=== PATIENT | female | born 1955 | race Caucasian/White ===

== ENCOUNTER 2016-12-09 08:18 | Emergency (ER) | payer OTHER ==
--- NOTE | 2016-12-09 09:28 | DIAGNOSTIC IMAGING REPORT ---
PROCEDURE: XR CHEST 1 VIEW INDICATION: SHORTNESS OF BREATH TECHNIQUE: Portable AP view 08:29 a.m. COMPARISON: Chest x-ray 05/22/2016. FINDINGS: Resolved right basilar infiltrate. Lungs are clear. Heart and mediastinum are normal. Thorax is normal. IMPRESSION: 1. Negative chest.
--- NOTE | 2016-12-09 11:15 | ED NURSING NOTES ---
Clinical Report - Nurses [facility] [address] [place] [address] 12/09/2016 8:19 Patient: MAREN MARADIAGA TRIAGE Triage time 08:14. Acuity: LEVEL 3. Chief Complaint: DIZZINESS and (CASILLAS). Alert. EDMUNDO COMA SCORE: [place] Coma Scale: 15- eyes open spontaneously (4); best verbal response- oriented x 4 (5); best motor response- obeys commands (6). --08:23 Alyson Jules R.N. 08:14 12/09/16. BP: 124/64. HR: 51. RR: 15. O2 saturation: 96% on room air. Temp: 97.4 F (oral). Pain level now: 06/07. --08:23 Alyson Jules R.N. Weight: 97.7 kg measured. Height/Length: 66 inches Per Patient. BMI: 34.8. --08:21 Alyson Jules R.N. Medications TraZODone HCl Oral 400 mg, daily. --08:16 Alyson Jules R.N. Effexor XR Oral 150 mg, daily. --08:16 Alyson Jules R.N. Ritalin Oral 20 mg, daily. --08:17 Alyson Jules R.N. morphine 60 mg, daily. --08:17 Alyson Jules R.N. OxyCODONE HCl Oral 20 mg, daily. --08:17 Alyson Jules R.N. Atorvastatin Calcium Oral 20 mg, daily. --08:25 Alyson Julse R.N. Medication/allergy information source: the patient. --08:23 Alyson Jules R.N. Allergies Abilify. --08:18 Alyson Jules R.N. History Arrived by private vehicle. Historian: patient. Accompanied by family. Primary physician (Otoniel). This started about 2 days. SOCIAL HX: Former smoker. No alcohol use or drug use. FALL RISK ASSESSMENT: Fall risk assessment completed. No fall risk identified. FUNCTIONAL ASSESSMENT: Functional assessment: no impairments noted. LEARNING NEEDS ASSESSMENT: The learning needs assessment revealed no barriers. --08:23 Alyson Jules R.N. PROBLEMS: Dehydration. Hypokalemia. Weakness. UTI - Urinary Tract Infection. Headache. Dysphagia. Dental Pain. Chronic Headache. Migraine Headache. Fibromyalgia. Nausea. Abdominal Pain. Back Injury. Cardiac Arrest. Back Pain. Fall. Arthritis. Depression. Hypercholesterolemia. --08:23 Alyson Jules R.N. Gastroesophageal Reflux Disease [RuleOut]. --08:23 Alyson Jules R.N. ADDITIONAL SURGERIES: Appendectomy. Brain tumor. Breast Biopsy. Cholecystectomy. Dental Surgery. Hysterectomy. Lap band. Oophorectomy. Thyroid Surgery. --08:23 Alyson Jules R.N. Assessment GENERAL / NEURO / PSYCH: The patient is awake and alert, is oriented and cooperative and has poor eye contact. RESPIRATORY: Respirations not labored. GI / : ( nauseated). SKIN: Skin is warm and dry. --08:23 Alyson Jules R.N. Interventions ID and allergy band on patient. To treatment room. --08:23 Alyson Jules R.N. PHYSICAL ASSESSMENT 08:29 12/09/16. To room via wheelchair. Patient gowned. ( daughter states the pt called her this morning and asked her to drive her to the hospital, pt told her she hadn't been able to eat or drink anything for 2 days). GENERAL / NEURO / PSYCH: The patient is awake and alert, is oriented and cooperative and has poor eye contact. RESPIRATORY: Respirations not labored. CVS: Cardiac rhythm: sinus bradycardia. SKIN: Skin is warm and dry. --08:29 Alyson Jules R.N. NURSING PROGRESS NOTES 08:31 12/09/16. Cardiac rhythm: sinus bradycardia. auto clocks repairer, pulse oximeter and NIBP monitor placed on patient. Patient gowned. Call light placed in reach. Side rails up x 2. Bed placed in lowest position. Brakes of bed on. --08:31 Alyson Jules R.N. Portable chest x-ray. --08:31 Alyson Jules R.N. 08:32 12/09/2016 Site #1 started via IV in the right antecubital space with an 20g angiocath, with aseptic technique and good blood return; one attempt. Blood drawn: rainbow set. Labeled in the presence of the patient and sent to the lab. Saline lock flushed with 10 mL saline (by Cornelia HOOPER). --08:32 Alyson Jules R.N. 08:46 12/09/16. Patient ID band checked. Catheterized urine collected; sample sent to lab. Specimen labeled in the presence of the patient (per aseptic tech with femcath kit). --08:46 Alyson Jules R.N. EKG time: (08:28). EKG was performed by a tech and shown to the ED physician. --08:48 Emmie Torrez ( At patient's bedside after she called. Pt complained of head ache and stomach pain. Reported to the ER doctor.). --09:12 Emmie Torrez 09:37 12/09/2016 Started bag #1 1000 mL IV Fluids IV NS (Saline); at 1000 mL/hr over 30 minute(s) via site #1 via IV pump. --09:37 Alyson Jules R.N. 09:38 12/09/2016 Reglan (Metoclopramide HCl) IVP 10 mg given over 2 minute(s) via site #1. Allergies verified and confirmed 5 rights. IV patency established. IV site checked: no pain, redness, or swelling. IV flushed thoroughly pre- and post-medication administration. IVP given by RN. --09:38 Alyson Jules R.N. 09:38 12/09/2016 HALDOL (Haloperidol Lactate) IVP 3 mg given over 2 minute(s) via site #1. Allergies verified, confirmed 5 rights and sedative warning given to the patient and patient's family. IV patency established. IV site checked: no pain, redness, or swelling. IV flushed thoroughly pre- and post-medication administration. IVP given by RN. --09:38 Alyson Jules R.N. 09:41 pt asking for "narcotic" for her CASILLAS, states she is "feeling worse" and she takes narcotics for her pain at home. The patient is resting quietly. Overall patient status is the same- she states feels worse. GENERAL / NEURO / PSYCH: Alert. Oriented X 4. RESPIRATORY: No respiratory distress. CVS: Cardiac rhythm: sinus rhythm. SKIN: Skin is warm and dry. --09:43 Alyson Jules R.N. ( At patient's bedside after she called. Tech helped to the commode and when patient got back to bed she requested to have her purse. Tech observed patient taking some pills from a bottle and swallowed with water from a water bottle from her purse.). --09:58 Emmie Torrez 10:07 12/09/2016 Zofran (Ondansetron HCl) IVP 4 mg given over 2 minute(s) via site #1. Allergies verified and confirmed 5 rights. IV patency established. IV site checked: no pain, redness, or swelling. IV flushed thoroughly pre- and post-medication administration. IVP given by RN. --10:17 Alyson Jules R.N. 10:07 12/09/2016 Toradol IVP 30 mg given over 2 minute(s) via site #1. Allergies verified and confirmed 5 rights. IV patency established. IV site checked: no pain, redness, or swelling. IV flushed thoroughly pre- and post-medication administration. IVP given by RN. --10:17 Alyson Jules R.N. 10:15 12/09/2016 IV Fluids IV NS via IV site #1 Rate Changed: bag #1 decreased to 125 mL/hr via IV pump. --10:15 Alyson Jules R.N. 10:35. ( At patient bedside after she called and complained of feeling nervous and said she did not know which medication made her feel that way. Patient requested to get dressed and leave, ACADEMIC SERVICES PROFESSIONAL Notified.). --10:45 Emmie Torrez 10:40 pt wants to leave now because she is "so nervous" she can't sit here another 2 hours, AMA form signed but then daughter came back in the room and convinced her mother to stay for completion of treatment. --10:48 Alyson Jules R.N. ( Patient heard by tech asking daughter in room for her purse. Tech observed patient taking another medication from a bottle with bottled water from purse.). --10:54 Emmie Torrez 11:30. Reassessment after fluids administered and medication administered. She is calm. Overall patient status is improved- she states feels better (pt calmer now, states she feels better, got up off bed and dressed without assistance). GENERAL / NEURO / PSYCH: Patient is calm and cooperative. Alert. Oriented X 4. RESPIRATORY: No respiratory distress. CVS: Cardiac rhythm: sinus rhythm. SKIN: Skin is warm and dry. --11:44 Alyson Jules R.N. 09:15 12/09/16. BP: 134/59. HR: 56. RR: 16. O2 saturation: 98% on room air. --13:25 Alyson Jules R.N. 10:30 12/09/16. BP: 141/67. HR: 70. RR: 16. O2 saturation: 99% on room air. --13:28 Alyson Jules R.N. Intake & Output Urine: 200 mL, with return of yellow-colored clear urine; odor is normal. --09:59 Emmie Torrez. DISPOSITION / DISCHARGE Departure time: 1130. Condition at departure: improved. No learning barriers present. Discharge instructions provided and reviewed with the patient and family. Patient and family verbalized understanding. Written instructions provided in [place]. The patient was discharged home and accompanied by family. She left the Emergency Department ambulatory and via private vehicle. FALL RISK ASSESSMENT: Fall risk assessment completed. No fall risk identified. --11:42 Alyson Jules R.N. 11:30 12/09/16. BP: 141/62. HR: 69. RR: 16. O2 saturation: 95% on room air. Temp: 98.1 F (oral). Pain level now: 11/05. --11:42 Alyson Jules R.N. 11:30 12/09/2016 Site #1 removed upon discharge. Catheter intact. Bandaid applied. --11:43 Alyson Jules R.N. Locked/Released at 12/09/2016 13:29 by Alyson Jules R.N.
--- NOTE | 2016-12-09 11:15 | ED CLINICAL REPORT ---
Clinical Report - Physicians/Mid Levels [facility] [address] [place] [address] 12/09/2016 8:19 Patient: MAREN MARADIAGA Time Seen: 08:22. Arrived- By private vehicle. Historian- patient. HISTORY OF PRESENT ILLNESS Chief Complaint: HEADACHE and MIGRAINE HEADACHE. Is still present. This started 2 days ago. It was abrupt in onset and has been constant. It is described as similar to previous headaches. Described as a global headache. No neck pain. At its maximum, severity described as severe. When seen in the E.D., severity described as severe. The patient has had blurred vision, nausea and vomiting. The vomiting has occurred several times and has been bilious. She has had new onset of generalized weakness. No photophobia or numbness. Similar symptoms previously: Many times. REVIEW OF SYSTEMS The patient has had fever, chills, abdominal pain, nausea and vomiting. She has had frequency and dizziness and experienced sweats. No calf pain, chest pain, cough, difficulty breathing or pedal edema. No palpitations, black stools, bloody stools or diarrhea. the patient reports that she has not felt well for 2-1/2 years. She attributes this to having had a lap band placed that she says causes her pain and frequent nausea. All systems otherwise negative, except as recorded above. PAST HISTORY Dehydration. Hypokalemia. Weakness. UTI - Urinary Tract Infection. Headache. Dysphagia. Dental Pain. Chronic Headache. Migraine Headache. Fibromyalgia. Nausea. Abdominal Pain. Back Injury. Cardiac Arrest. Back Pain. Fall. Arthritis. Depression. Hypercholesterolemia. Gastroesophageal Reflux Disease Acoustic neuroma ADDITIONAL SURGERIES: Appendectomy Acoustic neuroma removal Breast Biopsy. Cholecystectomy. Dental Surgery. Hysterectomy. Lap band. Oophorectomy. Thyroid Surgery. Medications: Atorvastatin Calcium Oral 20 mg, daily. OxyCODONE HCl Oral 20 mg, daily. morphine 60 mg, daily. Ritalin Oral 20 mg, daily. Effexor XR Oral 150 mg, daily. TraZODone HCl Oral 400 mg, daily. Allergies: Abilify. SOCIAL HISTORY Former smoker. No alcohol use or drug use. ADDITIONAL NOTES The nursing notes have been reviewed. PHYSICAL EXAM Vital Signs: 12/09/2016 08:14 BP: 124/64. HR: 51. RR: 15. O2 saturation: 96%. Temp: 97.4 F. Pain level now: 06/07. Have been reviewed. Appearance: Alert. Eyes: Pupils equal, round and reactive to light. Eyes normal inspection. No photophobia. ENT: Ears normal. Nose normal. Pharynx normal. Neck: Normal inspection. Neck supple. No meningeal signs or carotid bruit. CVS: Bradycardia. Heart sounds normal. Respiratory: No respiratory distress. Breath sounds normal. Abdomen: Soft and nontender. No organomegaly. Obese. Back: Normal inspection. Skin: Skin warm and dry. Normal skin color. Normal skin turgor. Extremities: Extremities exhibit normal ROM. No lower extremity edema. Neuro: Alert. Speech normal. Cranial nerves normal (as tested). LABS, X-RAYS, AND EKG EKG: Rate: 50. EKG unchanged when compared with prior EKG. (22 May 2016). The study has been independently viewed by me. Laboratory Tests: CBC w Diff: (VIVI: 12/09/2016 08:20) ( MsgRcvd 12/09/2016 08:54) Final results Test Result Flag Units (Reference) WHITE BLOOD COUNT 8.6 K/uL (4.5-11.5) RED BLOOD COUNT 4.46 M/uL (4.00-5.20) HEMOGLOBIN 12.8 gm/dL (12.0-16.0) HEMATOCRIT 39.5 % (36.0-46.0) MEAN CELL VOLUME 89 fL (80-100) MEAN CORPUSCULAR HGB 29 pg (26-34) MEAN CORPUSCULAR HGB CONC 32 g/dL (31-37) RED CELL DISTRIBUTION WIDTH 14.0 % (11.6-14.8) PLATELET COUNT 332 K/uL (150-400) NEUTROPHIL % 71.9 % (50-75) LYMPH % 22.6 L % (25-40) MONO % 5.1 % (3-14) EOSINOPHIL % 0 % (0-4) BASOPHIL % 0.4 % (0-2) Lipase: (VIVI: 12/09/2016 08:20) ( MsgRcvd 12/09/2016 08:53) Final results Test Result Flag Units (Reference) GLUCOSE 95 mg/dL (70-110) BUN 19 H mg/dL (7-18) CREATININE 0.9 mg/dL (0.6-1.3) Estimated GFR >60 mL/min Estimated GFR- >60 mL/min Note: Persistent reduction over 3 months in eGFR<60 mL/min/1.73 m2 defines CKD. Patients with eGFR values>=60 mL/min/1.73 m2 may also have CKD if evidence ofpersistent proteinuria. Additional information may be foundat www.kidney.org. SODIUM 146 H mmol/L (136-145) POTASSIUM 3.8 mmol/L (3.5-5.1) CHLORIDE 109 H mmol/L (98-107) CARBON DIOXIDE 25 mmol/L (21-32) CALCIUM 8.8 mg/dL (8.5-10.1) TOTAL PROTEIN 7.3 g/dL (6.4-8.2) ALBUMIN 3.5 g/dL (3.3-5.0) BILIRUBIN, TOTAL 0.2 mg/dL (0.0-1.0) ALKALINE PHOSPHATASE 104 U/L (46-116) AST (SGOT) 15 U/L (15-37) ALT (SGPT) 19 U/L (12-78) LIPASE 77 U/L (73-393) AMYLASE 40 U/L (25-115) CPK 33 U/L (24-260) TROPONIN I <0.05 ng/mL (0.00-1.5) TROPONIN REFERENCE RANGE:<0.1 NEGATIVE0.1-1.5 INDETERMINANT>1.5 POSITIVE . PROGRESS AND PROCEDURES Course of Care: 09:14 12/09/16. The case was discussed with Dr. Armando hidalgo. We reviewed the patient's history and examination findings. He will follow up on the results are pending studies and will arrange an appropriate disposition for her. - MW H&P findings consistent with what was discussed with Dr. James. Pt is feeling markedly better after IVF, Toradol, and Zofran. Patient/family counseled. Old medical records reviewed. Disposition: Discharged home in good and improved condition. Condition: good. CLINICAL IMPRESSION Acute vascular headache- resistant to treatment. Mild dehydration INSTRUCTIONS Your Current Medications: CONTINUE TAKING THE FOLLOWING MEDICATIONS: Atorvastatin Calcium Oral : 20 mg daily. Effexor XR Oral : 150 mg daily. morphine* : 60 mg daily. OxyCODONE HCl Oral : 20 mg daily. Ritalin Oral : 20 mg daily. TraZODone HCl Oral : 400 mg daily. Follow-up: Follow up with your doctor in about four days. Call for an appointment. Screening today revealed the patient's blood pressure to be in the pre-hypertensive range. The patient should follow up with a primary care provider for blood pressure management. (Electronically signed by Renzo Roberts Dr. 12/09/2016 21:40)
--- NOTE | 2016-12-09 11:15 | ED ORDER SUMMARY ---
..... Patient: MAREN MARADIAGA OrderSheet [facility] VisitID: [id number] [address] [place] [address] 61y, F Registration Date/Time: 12/09/2016 ORDER SHEET Weight: 97.7 kg (measured) Allergies: Abilify GENERAL ORDERS: CBC w Diff Urgent (08:12/09/2016 SStone R.N. verbal order read back to Connie MICHAELS) (Ack 8:28 CRISTOFERoerner) (8:32 Frida R.N.) CMP Urgent (:12/09/2016 SStone R.N. verbal order read back to Connie MICHAELS) (Ack 8:28 CRISTOFERoerner) (8:32 Frida R.N.) UA-Culture if indicated Urgent (:12/09/2016 SStone R.N. verbal order read back to Connie MICHAELS) (Ack 8:28 CRISTOFERoeasa) (8:45 Frida R.N.) Lipase Urgent (:12/09/2016 SStone R.N. verbal order read back to Connie MICHAELS) (Ack 8:28 CRISTOFERoerner) (8:32 Frida R.N.) Roofing Foreman (Continuous) (:12/09/2016 SStone R.N. verbal order read back to Connie MICHAELS) (8:28 KHoerner) Chest 1V Urgent (:12/09/2016 SStone R.N. verbal order read back to Connie MICHAELS) (Ack 8:28 CRISTOFERoerner) (8:33 Frida R.N.) Amylase Urgent (:12/09/2016 SStone R.N. verbal order read back to Connie MICHAELS) (Ack 8:28 CRISTOFERoerner) (8:33 Frida R.N.) EKG - ER Stat (:12/09/2016 SStone R.N. verbal order read back to Connie MICHAELS) (8:28 KHoerner) Troponin-I Urgent (:12/09/2016 SStone R.N. verbal order read back to Connie MICHAELS) (Ack 8:28 KHoerner) (8:33 Frida R.N.) CPK Urgent (08:22 12/09/2016 Demondone R.NLatisha verbal order read back to Connie MICHAELS) (Ack 8:28 Chinyere) (8:33 Frida R.N.) Urine Drug Screen Urgent (08:39 12/09/2016 Connie MICHAELS) (9:00 Chinyere) Roofing Foreman (Continuous) (:12/09/2016 Connie MICHAELS) (9:16 RKaruga) MEDICATION ORDERS: IV FLUIDS: IV Saline Lock (08:22 12/09/2016 Matthew R.NLatisha verbal order read back to Connie MICHAELS) (8:32 Frida R.N.) Haldol IV 3 mg (HIGH ALERT MEDICATION, NOW) (09:12/09/2016 Connie MICHAELS) (Ack 9:23 Frida R.N.) (9:38 Frida R.N.) Reglan IV 10 mg (NOW) (09:12/09/2016 Connie MICHAELS) (Ack 9:23 Frida R.NLatisha) (9:38 Frida R.N.) IV NS : initial bolus 500 mL (1000 mL/hr), then 125 mL/hr for 4h (NOW); Urgent (09:12/09/2016 Connie MICHAELS) (Ack 9:23 Frida R.N.) (9:37 Frida R.N.) Toradol IV 30 mg (NOW) (09:48 12/09/2016 Reggie Olivia) (Ack 9:56 Frida R.N.) (10:17 Frida R.N.) Zofran IV 4 mg (NOW) (09:48 12/09/2016 Reggie Olivia) (Ack 9:56 Frida R.NLatisha) (10:17 Frida R.N.) ORDER SHEET NOTES: [Electronically signed by Alyson Jules R.N. (13:12/09/2016)] [Electronically signed by Renzo Roberts Dr. (21:40 12/09/2016)] [Electronically locked/signed by Alyson Jules R.N. (13:12/09/2016)]
--- NOTE | 2016-12-09 11:15 | ED ORDER SUMMARY ---
..... Patient: MAREN MARADIAGA OrderSheet [facility] VisitID: [id number] [address] [place] [address] 61y, F Registration Date/Time: 12/09/2016 ORDER SHEET Weight: 97.7 kg (measured) Allergies: Abilify GENERAL ORDERS: CBC w Diff Urgent (08:12/09/2016 SStone R.N. verbal order read back to Connie MICHAELS) (Ack 8:28 CRISTOFERoerner) (8:32 Frida R.N.) CMP Urgent (:12/09/2016 SStone R.N. verbal order read back to Connie MICHAELS) (Ack 8:28 CRISTOFERoerner) (8:32 Frida R.N.) UA-Culture if indicated Urgent (:12/09/2016 SStone R.N. verbal order read back to Connie MICHAELS) (Ack 8:28 CRISTOFERoeasa) (8:45 Frida R.N.) Lipase Urgent (:12/09/2016 SStone R.N. verbal order read back to Connie MICHAELS) (Ack 8:28 CRISTOFERoerner) (8:32 Frida R.N.) Weapons Designer (Continuous) (:12/09/2016 SStone R.N. verbal order read back to Connie MICHAELS) (8:28 KHoerner) Chest 1V Urgent (:12/09/2016 SStone R.N. verbal order read back to Connie MICHAELS) (Ack 8:28 CRISTOFERoerner) (8:33 Frida R.N.) Amylase Urgent (:12/09/2016 SStone R.N. verbal order read back to Connie MICHAELS) (Ack 8:28 CRISTOFERoerner) (8:33 Frida R.N.) EKG - ER Stat (:12/09/2016 SStone R.N. verbal order read back to Connie MICHAELS) (8:28 KHoerner) Troponin-I Urgent (:12/09/2016 SStone R.N. verbal order read back to Connie MICHAELS) (Ack 8:28 KHoerner) (8:33 Frida R.N.) CPK Urgent (08:22 12/09/2016 Demondone R.NLatisha verbal order read back to Connie MICHAELS) (Ack 8:28 Chinyere) (8:33 Frida R.N.) Urine Drug Screen Urgent (08:39 12/09/2016 Connie MICHAELS) (9:00 Chinyere) Weapons Designer (Continuous) (:12/09/2016 Conine MICHAELS) (9:16 RKaruga) MEDICATION ORDERS: IV FLUIDS: IV Saline Lock (08:22 12/09/2016 Matthew R.NLatisha verbal order read back to Connie MICHAELS) (8:32 Frida R.N.) Haldol IV 3 mg (HIGH ALERT MEDICATION, NOW) (09:12/09/2016 Connie MICHAELS) (Ack 9:23 Frida R.N.) (9:38 Frida R.N.) Reglan IV 10 mg (NOW) (09:12/09/2016 Connie MCIHAELS) (Ack 9:23 Frida R.NLatisha) (9:38 Frida R.N.) IV NS : initial bolus 500 mL (1000 mL/hr), then 125 mL/hr for 4h (NOW); Urgent (09:12/09/2016 Connie MICHAELS) (Ack 9:23 Frida R.N.) (9:37 Frida R.N.) Toradol IV 30 mg (NOW) (09:48 12/09/2016 Reggie Olivia) (Ack 9:56 Frida R.N.) (10:17 Frida R.N.) Zofran IV 4 mg (NOW) (09:48 12/09/2016 Reggie Olivia) (Ack 9:56 Frida R.NLatisha) (10:17 Frida R.N.) ORDER SHEET NOTES: [Electronically signed by Alyson Jules R.N. (13:12/09/2016)] [Electronically signed by Renzo Roberts Dr. (21:40 12/09/2016)] [Electronically locked/signed by Alyson Jules R.N. (13:12/09/2016)]
--- NOTE | 2016-12-09 21:41 | ED MAR SUMMARY ---
..... Medication Administration Record [facility] [address] [place] [address] Patient: MAREN MARADIAGA Visit ID: [id number] 61y, F Weight: 97.7 kg Height/Length: 66 in BMI: 34.8 ALLERGIES: Abilify Start 09:37 12/09/2016 Alyson Jules R.N. Medication Administered: IV NS (SALINE), Dose: IV Fluids over 30 minute(s), Rate: 1000 mL/hr, Dispensed: 1000 mL bag, Site: #1 right AC. Medication Ordered: IV NS : initial bolus 500 mL (1000 mL/hr), then 125 mL/hr for 4h (NOW); Urgent. Given :12/09/2016 Alyson Jules R.N. Medication Administered: HALDOL [IVP] (HALOPERIDOL LACTATE), Dose: 3 mg IVP over 2 minute(s), Site: #1 right AC. Medication Ordered: Haldol IV 3 mg (HIGH ALERT MEDICATION, NOW). Given 12/09/2016 Alyson Jules R.N. Medication Administered: REGLAN [IVP] (METOCLOPRAMIDE HCL), Dose: 10 mg IVP over 2 minute(s), Site: #1 right AC. Medication Ordered: Reglan IV 10 mg (NOW). Given :12/09/2016 Alyson Jules R.N. Medication Administered: TORADOL [IVP], Dose: 30 mg IVP over 2 minute(s), Site: #1 right AC. Medication Ordered: Toradol IV 30 mg (NOW). Given :12/09/2016 Alyson Jules R.N. Medication Administered: ZOFRAN [IVP] (ONDANSETRON HCL), Dose: 4 mg IVP over 2 minute(s), Site: #1 right AC. Medication Ordered: Zofran IV 4 mg (NOW).
--- NOTE | 2016-12-09 21:41 | ED MAR SUMMARY ---
..... Medication Administration Record [facility] [address] [place] [address] Patient: MAREN MARADIAGA Visit ID: [id number] 61y, F Weight: 97.7 kg Height/Length: 66 in BMI: 34.8 ALLERGIES: Abilify Start 09:37 12/09/2016 Alyson Jules R.N. Medication Administered: IV NS (SALINE), Dose: IV Fluids over 30 minute(s), Rate: 1000 mL/hr, Dispensed: 1000 mL bag, Site: #1 right AC. Medication Ordered: IV NS : initial bolus 500 mL (1000 mL/hr), then 125 mL/hr for 4h (NOW); Urgent. Given :12/09/2016 Alyson Jules R.N. Medication Administered: HALDOL [IVP] (HALOPERIDOL LACTATE), Dose: 3 mg IVP over 2 minute(s), Site: #1 right AC. Medication Ordered: Haldol IV 3 mg (HIGH ALERT MEDICATION, NOW). Given 12/09/2016 Alyson Jules R.N. Medication Administered: REGLAN [IVP] (METOCLOPRAMIDE HCL), Dose: 10 mg IVP over 2 minute(s), Site: #1 right AC. Medication Ordered: Reglan IV 10 mg (NOW). Given :12/09/2016 Alyson Jules R.N. Medication Administered: TORADOL [IVP], Dose: 30 mg IVP over 2 minute(s), Site: #1 right AC. Medication Ordered: Toradol IV 30 mg (NOW). Given :12/09/2016 Alyson Jules R.N. Medication Administered: ZOFRAN [IVP] (ONDANSETRON HCL), Dose: 4 mg IVP over 2 minute(s), Site: #1 right AC. Medication Ordered: Zofran IV 4 mg (NOW).
--- NOTE | 2016-12-09 21:41 | ED DISCHARGE INSTRUCTIONS ---
Patient: MAREN MARADIAGA General Instructions [facility] VisitID: [id number] [address] [place] [address] 61y, F Registration Date/Time: 12/09/2016 Acute vascular headache- resistant to treatment. Mild dehydration INSTRUCTIONS Your Current Medications: CONTINUE TAKING THE FOLLOWING MEDICATIONS: Atorvastatin Calcium Oral : 20 mg daily. Effexor XR Oral : 150 mg daily. morphine* : 60 mg daily. OxyCODONE HCl Oral : 20 mg daily. Ritalin Oral : 20 mg daily. TraZODone HCl Oral : 400 mg daily. Follow-up: Follow up with your doctor in about four days. Call for an appointment. Screening today revealed the patient's blood pressure to be in the pre-hypertensive range. The patient should follow up with a primary care provider for blood pressure management. ADDITIONAL INFORMATION Headache [Unspecified] The cause of your headache today is not clear, but it does not appear to be the sign of any serious illness. Under stress, some people tense the muscles of their shoulder, neck and scalp without knowing it. If this condition lasts long enough, a TENSION HEADACHE can occur. A MIGRAINE HEADACHE is caused by changes in blood flow to the brain. A migraine attack may be triggered by emotional stress, hormone changes during the menstrual cycle, oral contraceptives, alcohol use, certain foods containing tyramine, eye strain, weather changes, missing meals, lack of sleep or oversleeping. Other causes of headache include a viral illness with high fever, head injury with concussion, sinus, ear or throat infection, dental pain and TMJ (jaw joint) pain. More serious but less common causes of headache include stroke, brain hemorrhage, brain tumor, meningitis and encephalitis. Home Care: If you were given pain medicine for this headache, do not drive yourself home. Arrange for a ride, instead. When you get home, try to sleep. You should feel much better when you wake up. Apply heat to the back of your neck to relieve neck muscle spasm. Migraine headaches may respond best to an ice pack on the forehead or at the base of the skull. If you are having nausea or vomiting, follow a light diet until your headache is relieved. If you have a migraine type headache, use sunglasses when in the daylight or around bright indoor lighting until symptoms improve. Bright glaring light can worsen this kind of headache. Follow Up with your doctor if the headache is not better within the next 24 hours. If you have frequent headaches you should discuss a treatment plan with your primary care doctor. By being aware of the earliest signs of headache, and starting treatment right away, you may be able to stop the pain yourself. Get Prompt Medical Attention if any of the following occur: Worsening of your head pain or no improvement within 24 hours Repeated vomiting (unable to keep liquids down) Fever of 100.4F (38C) or higher, or as directed by your healthcare provider Stiff neck Extreme drowsiness, confusion or fainting Dizziness, vertigo (dizziness with spinning sensation) Weakness of an arm or leg or one side of the face Difficulty with speech or vision Dehydration (Adult) Dehydration occurs when your body loses too much fluid. This may be the result of vomiting a lot or from diarrhea,sweating a lot, or a high fever. It may also happen if you dont drink enough fluid when youre sick. Misuse of diuretics (water pills) can also be a cause. Symptoms include thirst and feeling dizzy, weak, fatigued, or very drowsy. The diet described below is usually enough to treat most cases. Sometimes you may needmedicine. Home Care Follow these guidelines for home care: Drink at least 12 8-ounce glasses of fluid every day to overcome the dehydration. Fluid may include water; orange juice; lemonade; apple, grape, and cranberry juice; clear fruit drinks; electrolyte replacement and sports drinks; and teas and coffee without caffeine. If you have been diagnosed with a kidney disease, ask your doctor how much and what types of fluids you should drink to prevent dehydration. If you have kidney disease, drinking too much fluid can cause it build up in the your body and be dangerous to your health. If you have fever, muscle aching, or headache from a viral syndrome, you may useacetaminophen or ibuprofen, unless another medicine was prescribed for this.If you have chronic liver or kidney disease or ever had a stomach ulcer or GI bleeding, talk with your doctor before using these medicines. Don't take aspirin if you are younger than 18 and are ill with a fever.Aspirin raises the chance forsevere liver injury. Follow-up care Follow up with your health care provider if you don't get better in the next 24 to 48 hours. When to seek medical care Get prompt medical attention if any of theseoccur: Continued vomiting (cant keep liquids down) Frequent diarrhea (more than 5 times a day); blood (red or black color) or mucus in diarrhea Blood in vomit or stool Swollen abdomen or increasing abdominal pain Weakness, dizziness, or fainting Unusually drowsy or confused Reduced urine output or extreme thirst Fever of 100.4 F (38 C) oral or higher that does not get better with fever medication You have been given the following additional information: Headache, Unspecified Dehydration (Adult) (Electronically signed by Renzo Roberts Dr. 12/09/2016 21:40)
--- NOTE | 2016-12-09 21:41 | ED MED RECONCILIATION SUMMARY ---
Patient: MAREN MARADIAGA Medication Reconciliation Report [facility] VisitID: [id number] [address] [place] [address] 61y, F Registration Date/Time: 12/09/2016 Weight: 97.7 kg Height/Length: 66 in. BMI: 34.8 ALLERGIES: Abilify The patient's Home Medications are listed below: CONTINUE TAKING THE FOLLOWING MEDICATIONS: Atorvastatin Calcium Oral 20 mg, daily Effexor XR Oral 150 mg, daily morphine 60 mg, daily OxyCODONE HCl Oral 20 mg, daily Ritalin Oral 20 mg, daily TraZODone HCl Oral 400 mg, daily The source(s) of the original Home Medication information: patient The following Medications were given to the patient in the Emergency Department: IV NS IV Fluids bolus 0, then 1000 mL/hr, administered: 12/09/2016 9:37:00 AM Reglan [IVP] IVP 10 mg, administered: 12/09/2016 9:38:00 AM HALDOL [IVP] IVP 3 mg, administered: 12/09/2016 9:38:00 AM Zofran [IVP] IVP 4 mg, administered: 12/09/2016 10:07:00 AM Toradol [IVP] IVP 30 mg, administered: 12/09/2016 10:07:00 AM The following Medications were prescribed to the patient: None.
--- NOTE | 2016-12-09 21:41 | ED MED RECONCILIATION SUMMARY ---
Patient: MAREN MARADIAGA Medication Reconciliation Report [facility] VisitID: [id number] [address] [place] [address] 61y, F Registration Date/Time: 12/09/2016 Weight: 97.7 kg Height/Length: 66 in. BMI: 34.8 ALLERGIES: Abilify The patient's Home Medications are listed below: CONTINUE TAKING THE FOLLOWING MEDICATIONS: Atorvastatin Calcium Oral 20 mg, daily Effexor XR Oral 150 mg, daily morphine 60 mg, daily OxyCODONE HCl Oral 20 mg, daily Ritalin Oral 20 mg, daily TraZODone HCl Oral 400 mg, daily The source(s) of the original Home Medication information: patient The following Medications were given to the patient in the Emergency Department: IV NS IV Fluids bolus 0, then 1000 mL/hr, administered: 12/09/2016 9:37:00 AM Reglan [IVP] IVP 10 mg, administered: 12/09/2016 9:38:00 AM HALDOL [IVP] IVP 3 mg, administered: 12/09/2016 9:38:00 AM Zofran [IVP] IVP 4 mg, administered: 12/09/2016 10:07:00 AM Toradol [IVP] IVP 30 mg, administered: 12/09/2016 10:07:00 AM The following Medications were prescribed to the patient: None.
== END 2016-12-09 11:30 | disposition home or self-care (01) ==
LOC: ED SRH 08:18
DX: G44.1 Vascular headache, not elsewhere classified (principal); E86.0 Dehydration; E78.00 Pure hypercholesterolemia, unspecified; Z79.891 Long term (current) use of opiate analgesic; Z79.899 Other long term (current) drug therapy; Z88.8 Allergy status to other drugs, medicaments and biological substances
CPT/HCPCS: 81460; 90004; 90100; 90616; 92235; 92530; 92610; 92760; 92761; 92762; 92763; 92764; 92765; 92766; 92767; 95059

== ENCOUNTER 2017-02-11 16:17 | Emergency (ER) | payer OTHER ==
--- NOTE | 2017-02-12 06:03 | ED ORDER SUMMARY ---
..... Patient: MAREN MARADIAGA OrderSheet [facility] VisitID: [id number] [place] [address] 62y, F Registration Date/Time: 02/11/2017 ORDER SHEET Weight: 90.7 kg (stated) Allergies: Abilify GENERAL ORDERS: CBC w Diff Urgent (16:42 02/11/2017 Reggie Olivia) (Ack 16:46 Marco A) (17:06 oberts R.N.) CMP Urgent (16:42 02/11/2017 Reggie Olivia) (Ack 16:46 Marco A) (17:06 Ryants R.N.) UA-Culture if indicated Urgent (16:42 02/11/2017 Reggie Olivia) (Ack 16:46 Marco A) (17:06 Ryants R.N.) Urine Drug Screen Urgent (16:42 02/11/2017 Reggie Olivia) (Ack 16:46 Marco A) (17:06 Ryants R.N.) TSH Urgent (16:42 02/11/2017 Reggie Olivia) (Ack 16:46 Marco A) (17:06 oberts R.N.) Old Records ([place] from 02-09-2017) (23:43 02/11/2017 Serge MICHAELS) (23:48 [facility]) MEDICATION ORDERS: Vistaril IM 50 mg (NOW, Do not administer intravenously) (20:03 02/11/2017 Reggie Olivia) (Ack 20:09 SRoberts R.N.) (20:14 SRoberts R.N.) Vistaril IM 50 mg (NOW, Do not administer intravenously) (01:56 02/12/2017 Serge MICHAELS) (2:20 CBradburn R.N.) IV FLUIDS: Toradol IV 30 mg (NOW) (16:41 02/11/2017 Reggie Olivia) (17:07 Bertha R.N.) IV Saline Lock (16:42 02/11/2017 Reggie Olivia) (17:06 Ryants R.N.) IV NS : initial bolus none -, then 1000 mL/hr for X1 (NOW) (17:55 02/11/2017 Reggie Olivia) (18:10 Bertha Liu) Ativan IV 1 mg (NOW) (05:52 02/12/2017 Susanna R.N. verbal order read back to Serge MICHAELS) (Ack 5:52 Susanna R.N.) (6:13 Susanna R.NLatisha) ORDER SHEET NOTES: [Electronically signed by Analisa Noonan R.N. (10:33 02/12/2017)] [Electronically signed by Rene Chi MD (07:08 02/13/2017)] [Electronically locked/signed by Analisa Noonan R.N. (10:33 02/12/2017)]
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
--- NOTE | 2017-02-12 06:03 | ED CLINICAL REPORT ---
Clinical Report - Physicians/Mid Levels Formerly [facility] [address] [place] [address] 02/11/2017 16:17 Patient: MAREN MARADIAGA Time Seen: 16:33; initial patient contact. Arrived- By private vehicle. In custody of police. Historian- patient. CPT: ER phys charges level 5 (#[id number]). HISTORY OF PRESENT ILLNESS Chief Complaint: DEPRESSED and SUICIDAL THOUGHTS. This started today. The patient is non-compliant with medication. Has not been sleeping. She has had anxiety. Has been depressed and angry, exhibited unusual behavior and had suicidal thoughts. The symptoms are described as moderate. Additional history - Pt w/ recent Bipolar Dx. Was abusing Rx meds so PCP stopped them. Pt angry and called daughter w/ threats to kill her and herself. Similar symptoms previously: Recent medical care: Not recently seen/assessed. REVIEW OF SYSTEMS The patient has had a headache and depression. No abdominal pain, vomiting, diarrhea, fever or sore throat. No cough, difficulty breathing, skin rash, enlarged lymph nodes or weakness. No diabetic symptoms or easy bruising. No difficulty walking. All systems otherwise negative, except as recorded above. PAST HISTORY ( Dehydration. Hypokalemia. Weakness. UTI - Urinary Tract Infection. Headache. Dysphagia. Dental Pain. Chronic Headache. Migraine Headache. Fibromyalgia. Nausea. Abdominal Pain. Immunizations. Back Injury. Cardiac Arrest. Back Pain. Fall. Arthritis. Depression. Hypercholesterolemia. Gastroesophageal Reflux Disease Bipolar D/O ADDITIONAL SURGERIES: Appendectomy. Brain tumor. Breast Biopsy. Cholecystectomy. Dental Surgery. Hysterectomy. Lap band. Oophorectomy. Thyroid Surgery.). SOCIAL HISTORY Never smoker. No alcohol use or drug use. Has social support. Has place to stay. ADDITIONAL NOTES The nursing notes have been reviewed. PHYSICAL EXAM Vital Signs: 02/11/2017 16:22 BP: 142/51. HR: 69. RR: 20. O2 saturation: 99%. Temp: 98.1 F. Pain level now: 10/10. Have been reviewed as normal. Appearance: Alert. No acute distress. Appearance is normal. Eyes: Pupils equal, round and reactive to light. Neck: Normal inspection. CVS: Normal heart rate and rhythm. Heart sounds normal. Respiratory: No respiratory distress. Breath sounds normal. Abdomen: Soft and nontender. Skin: Skin warm and dry. Normal skin color. Extremities: Extremities exhibit normal ROM. Psych / Neuro: Oriented X 3. Flat affect. Speech normal. Cognition normal. Thought process and content normal. She does not appear to understand hers illness or feel treatment is necessary. Cranial nerves normal (as tested). No cerebellar findings. No motor deficit. No sensory deficit. Reflexes normal. LABS, X-RAYS, AND EKG Laboratory Tests: UA-Culture if indicated: (VIVI: 02/11/2017 16:50) ( [facility] 02/11/2017 17:40) Final results Test Result Flag Units (Reference) URINE COLOR YELLOW URINE APPEARANCE CLEAR URINE GLUCOSE NEGATIVE (NEGATIVE) URINE BILIRUBIN NEGATIVE (NEGATIVE) URINE KETONE NEGATIVE (NEGATIVE) URINE SPECIFIC GRAVITY 1.015 (1.010-1.030) URINE PH 5.5 (5.0-8.0) URINE PROTEIN NEGATIVE (NEGATIVE) URINE UROBILINOGEN 0.2 EU/dL (0.2-1.0) URINE NITRITE NEGATIVE (NEGATIVE) URINE BLOOD NEGATIVE (NEGATIVE) URINE LEUK ESTERASE NEGATIVE (NEGATIVE) URINE RBC NONE SEEN rbc/hpf (0-1) URINE WBC 0-1 wbc/hpf (0-1) URINE EPITHELIAL CELLS 0-1 EPI/hpf (0-5) URINE BACTERIA NONE SEEN (NONE SEEN) URINE COMMENT CULT NOT INDICATED URINE CULTURES ARE SET-UP BASED ON THE FOLLOWING CRITERIA:POSITIVE NITRITEPOSITIVE LEUKOCYTE ESTERASEGREATER THAN 10 WHITE BLOOD CELLSMODERATE (2+) OR GREATER BACTERIA CBC w Diff: (VIVI: 02/11/2017 17:00) ( [facility] 02/11/2017 17:23) Final results Test Result Flag Units (Reference) WHITE BLOOD COUNT 10.4 K/uL (4.5-11.5) RED BLOOD COUNT 4.59 M/uL (4.00-5.20) HEMOGLOBIN 13.2 gm/dL (12.0-16.0) HEMATOCRIT 40.1 % (36.0-46.0) MEAN CELL VOLUME 87 fL (80-100) MEAN CORPUSCULAR HGB 29 pg (26-34) MEAN CORPUSCULAR HGB CONC 33 g/dL (31-37) RED CELL DISTRIBUTION WIDTH 13.7 % (11.6-14.8) PLATELET COUNT 277 K/uL (150-400) NEUTROPHIL % 67.8 % (50-75) LYMPH % 25.6 % (25-40) MONO % 6.1 % (3-14) EOSINOPHIL % 0.1 % (0-4) BASOPHIL % 0.4 % (0-2) Urine Drug Screen: (VIVI: 02/11/2017 16:50) ( [facility] [place] 02/11/2017 17:28) Final results Test Result Flag Units (Reference) AMPHETAMINE/METHAMPHETAMINE NEGATIVE (NEGATIVE) BARBITURATE NEGATIVE (NEGATIVE) BENZODIAZEPINE POSITIVE H (NEGATIVE) CANNABINOID NEGATIVE (NEGATIVE) COCAINE NEGATIVE (NEGATIVE) ECSTASY NEGATIVE (NEGATIVE) METHADONE NEGATIVE (NEGATIVE) OPIATE POSITIVE H (NEGATIVE) The urine drug screen is a qualitative screening test fordrug overdose and abuse. All screen results should beconsidered as presumptive.Drugs screened for are as follows:BenzodiazepinesCocaineAmphetamines/MetamphetaminesTHC (Tetrahydrocannabinol)OpiatesBarbituratesEcstasyMethadonePositive results are unconfirmed. For confirmation, notifythe lab for the specimen to be sent to the reference lab.All confirmations must be performed by a differentmethodology.The ingestion of natural herbal and plant productscontaining Ephedra/Ephedra metabolites can produce in urineone or more substances capable of cross reacting withamphetamine/methamphetamine immunoassays. These testsprovide a preliminary result only. A more specificalternative chemical method must be used to obtain aconfirmed analytical result. CMP: (VIVI: 02/11/2017 17:00) ( [facility] 02/11/2017 17:33) Final results Test Result Flag Units (Reference) GLUCOSE 122 H mg/dL (70-110) BUN 19 H mg/dL (7-18) CREATININE 1.0 mg/dL (0.6-1.3) Estimated GFR 59.33 mL/min Estimated GFR- >60 mL/min Note: Persistent reduction over 3 months in eGFR<60 mL/min/1.73 m2 defines CKD. Patients with eGFR values>=60 mL/min/1.73 m2 may also have CKD if evidence ofpersistent proteinuria. Additional information may be foundat www.kidney.org. SODIUM 144 mmol/L (136-145) POTASSIUM 3.7 mmol/L (3.5-5.1) CHLORIDE 108 H mmol/L (98-107) CARBON DIOXIDE 26 mmol/L (21-32) CALCIUM 9.0 mg/dL (8.5-10.1) TOTAL PROTEIN 7.8 g/dL (6.4-8.2) ALBUMIN 3.9 g/dL (3.3-5.0) BILIRUBIN, TOTAL 0.3 mg/dL (0.0-1.0) ALKALINE PHOSPHATASE 106 U/L (46-116) AST (SGOT) 18 U/L (15-37) ALT (SGPT) 22 U/L (12-78) THYROID STIMULATING HORMONE 1.478 uIU/mL (0.30-3.74) . PROGRESS AND PROCEDURES Course of Care: IV N S Pt given vistaril 50 mg po twice and ativan 1 mg IV once due to agitation. Good response from medications. Pt cleared medically and in need of CD MHP due to homocidal and suicidal intent. Mental evaluation complete and pt bed found . Pt transferred to [place]. Patient/family counseled. Disposition: Discharged. Condition: stable. CLINICAL IMPRESSION Suicidal ideation Homocidal. (Electronically signed by Rene Chi MD 02/13/2017 7:08)
--- NOTE | 2017-02-12 06:03 | ED ORDER SUMMARY ---
..... Patient: MAREN MARADIAGA OrderSheet [facility] VisitID: [id number] [place] [address] 62y, F Registration Date/Time: 02/11/2017 ORDER SHEET Weight: 90.7 kg (stated) Allergies: Abilify GENERAL ORDERS: CBC w Diff Urgent (16:42 02/11/2017 Reggie Olivia) (Ack 16:46 Marco A) (17:06 oberts R.N.) CMP Urgent (16:42 02/11/2017 Reggie Olivia) (Ack 16:46 Marco A) (17:06 Ryants R.N.) UA-Culture if indicated Urgent (16:42 02/11/2017 Reggie Olivia) (Ack 16:46 Marco A) (17:06 Ryants R.N.) Urine Drug Screen Urgent (16:42 02/11/2017 Reggie Olivia) (Ack 16:46 Marco A) (17:06 Ryants R.N.) TSH Urgent (16:42 02/11/2017 Reggie Olivia) (Ack 16:46 Marco A) (17:06 oberts R.N.) Old Records ([place] from 02-09-2017) (23:43 02/11/2017 Serge MICHAELS) ([facility]:48 [facility] MEDICATION ORDERS: Vistaril IM 50 mg (NOW, Do not administer intravenously) (20:03 02/11/2017 Reggie Olivia) (Ack 20:09 SRoberts R.N.) (20:14 SRoberts R.N.) Vistaril IM 50 mg (NOW, Do not administer intravenously) (01:56 02/12/2017 Serge MICHAELS) (2:20 CBradburn R.N.) IV FLUIDS: Toradol IV 30 mg (NOW) (16:41 02/11/2017 Reggie Olivia) (17:07 Bertha R.N.) IV Saline Lock (16:42 02/11/2017 Reggie Olivia) (17:06 Ryants R.N.) IV NS : initial bolus none -, then 1000 mL/hr for X1 (NOW) (17:55 02/11/2017 Reggie Olivia) (18:10 Bertha Lui) Ativan IV 1 mg (NOW) (05:52 02/12/2017 Susanna R.N. verbal order read back to Serge MICHAELS) (Ack 5:52 Susanna R.N.) (6:13 Susanna R.NLatisha) ORDER SHEET NOTES: [Electronically signed by Analisa Noonan R.N. (10:33 02/12/2017)] [Electronically signed by Rene Chi MD (07:08 02/13/2017)] [Electronically locked/signed by Analisa oNonan R.N. (10:33 02/12/2017)]
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
--- NOTE | 2017-02-12 06:03 | ED CLINICAL REPORT ---
Clinical Report - Physicians/Mid Levels [facility] [address] [place] [address] 02/11/2017 16:17 Patient: MAREN MARADIAGA Time Seen: 16:33; initial patient contact. Arrived- By private vehicle. In custody of police. Historian- patient. CPT: ER phys charges level 5 (#[id number]). HISTORY OF PRESENT ILLNESS Chief Complaint: DEPRESSED and SUICIDAL THOUGHTS. This started today. The patient is non-compliant with medication. Has not been sleeping. She has had anxiety. Has been depressed and angry, exhibited unusual behavior and had suicidal thoughts. The symptoms are described as moderate. Additional history - Pt w/ recent Bipolar Dx. Was abusing Rx meds so PCP stopped them. Pt angry and called daughter w/ threats to kill her and herself. Similar symptoms previously: Recent medical care: Not recently seen/assessed. REVIEW OF SYSTEMS The patient has had a headache and depression. No abdominal pain, vomiting, diarrhea, fever or sore throat. No cough, difficulty breathing, skin rash, enlarged lymph nodes or weakness. No diabetic symptoms or easy bruising. No difficulty walking. All systems otherwise negative, except as recorded above. PAST HISTORY ( Dehydration. Hypokalemia. Weakness. UTI - Urinary Tract Infection. Headache. Dysphagia. Dental Pain. Chronic Headache. Migraine Headache. Fibromyalgia. Nausea. Abdominal Pain. Immunizations. Back Injury. Cardiac Arrest. Back Pain. Fall. Arthritis. Depression. Hypercholesterolemia. Gastroesophageal Reflux Disease Bipolar D/O ADDITIONAL SURGERIES: Appendectomy. Brain tumor. Breast Biopsy. Cholecystectomy. Dental Surgery. Hysterectomy. Lap band. Oophorectomy. Thyroid Surgery.). SOCIAL HISTORY Never smoker. No alcohol use or drug use. Has social support. Has place to stay. ADDITIONAL NOTES The nursing notes have been reviewed. PHYSICAL EXAM Vital Signs: 02/11/2017 16:22 BP: 142/51. HR: 69. RR: 20. O2 saturation: 99%. Temp: 98.1 F. Pain level now: 10/10. Have been reviewed as normal. Appearance: Alert. No acute distress. Appearance is normal. Eyes: Pupils equal, round and reactive to light. Neck: Normal inspection. CVS: Normal heart rate and rhythm. Heart sounds normal. Respiratory: No respiratory distress. Breath sounds normal. Abdomen: Soft and nontender. Skin: Skin warm and dry. Normal skin color. Extremities: Extremities exhibit normal ROM. Psych / Neuro: Oriented X 3. Flat affect. Speech normal. Cognition normal. Thought process and content normal. She does not appear to understand hers illness or feel treatment is necessary. Cranial nerves normal (as tested). No cerebellar findings. No motor deficit. No sensory deficit. Reflexes normal. LABS, X-RAYS, AND EKG Laboratory Tests: UA-Culture if indicated: (VIVI: 02/11/2017 16:50) ( [facility] [place] 02/11/2017 17:40) Final results Test Result Flag Units (Reference) URINE COLOR YELLOW URINE APPEARANCE CLEAR URINE GLUCOSE NEGATIVE (NEGATIVE) URINE BILIRUBIN NEGATIVE (NEGATIVE) URINE KETONE NEGATIVE (NEGATIVE) URINE SPECIFIC GRAVITY 1.015 (1.010-1.030) URINE PH 5.5 (5.0-8.0) URINE PROTEIN NEGATIVE (NEGATIVE) URINE UROBILINOGEN 0.2 EU/dL (0.2-1.0) URINE NITRITE NEGATIVE (NEGATIVE) URINE BLOOD NEGATIVE (NEGATIVE) URINE LEUK ESTERASE NEGATIVE (NEGATIVE) URINE RBC NONE SEEN rbc/hpf (0-1) URINE WBC 0-1 wbc/hpf (0-1) URINE EPITHELIAL CELLS 0-1 EPI/hpf (0-5) URINE BACTERIA NONE SEEN (NONE SEEN) URINE COMMENT CULT NOT INDICATED URINE CULTURES ARE SET-UP BASED ON THE FOLLOWING CRITERIA:POSITIVE NITRITEPOSITIVE LEUKOCYTE ESTERASEGREATER THAN 10 WHITE BLOOD CELLSMODERATE (2+) OR GREATER BACTERIA CBC w Diff: (VIVI: 02/11/2017 17:00) ( [facility] [place] 02/11/2017 17:23) Final results Test Result Flag Units (Reference) WHITE BLOOD COUNT 10.4 K/uL (4.5-11.5) RED BLOOD COUNT 4.59 M/uL (4.00-5.20) HEMOGLOBIN 13.2 gm/dL (12.0-16.0) HEMATOCRIT 40.1 % (36.0-46.0) MEAN CELL VOLUME 87 fL (80-100) MEAN CORPUSCULAR HGB 29 pg (26-34) MEAN CORPUSCULAR HGB CONC 33 g/dL (31-37) RED CELL DISTRIBUTION WIDTH 13.7 % (11.6-14.8) PLATELET COUNT 277 K/uL (150-400) NEUTROPHIL % 67.8 % (50-75) LYMPH % 25.6 % (25-40) MONO % 6.1 % (3-14) EOSINOPHIL % 0.1 % (0-4) BASOPHIL % 0.4 % (0-2) Urine Drug Screen: (VIVI: 02/11/2017 16:50) ( [facility] [place] 02/11/2017 17:28) Final results Test Result Flag Units (Reference) AMPHETAMINE/METHAMPHETAMINE NEGATIVE (NEGATIVE) BARBITURATE NEGATIVE (NEGATIVE) BENZODIAZEPINE POSITIVE H (NEGATIVE) CANNABINOID NEGATIVE (NEGATIVE) COCAINE NEGATIVE (NEGATIVE) ECSTASY NEGATIVE (NEGATIVE) METHADONE NEGATIVE (NEGATIVE) OPIATE POSITIVE H (NEGATIVE) The urine drug screen is a qualitative screening test fordrug overdose and abuse. All screen results should beconsidered as presumptive.Drugs screened for are as follows:BenzodiazepinesCocaineAmphetamines/MetamphetaminesTHC (Tetrahydrocannabinol)OpiatesBarbituratesEcstasyMethadonePositive results are unconfirmed. For confirmation, notifythe lab for the specimen to be sent to the reference lab.All confirmations must be performed by a differentmethodology.The ingestion of natural herbal and plant productscontaining Ephedra/Ephedra metabolites can produce in urineone or more substances capable of cross reacting withamphetamine/methamphetamine immunoassays. These testsprovide a preliminary result only. A more specificalternative chemical method must be used to obtain aconfirmed analytical result. CMP: (VIVI: 02/11/2017 17:00) ( [facility] 02/11/2017 17:33) Final results Test Result Flag Units (Reference) GLUCOSE 122 H mg/dL (70-110) BUN 19 H mg/dL (7-18) CREATININE 1.0 mg/dL (0.6-1.3) Estimated GFR 59.33 mL/min Estimated GFR- >60 mL/min Note: Persistent reduction over 3 months in eGFR<60 mL/min/1.73 m2 defines CKD. Patients with eGFR values>=60 mL/min/1.73 m2 may also have CKD if evidence ofpersistent proteinuria. Additional information may be foundat www.kidney.org. SODIUM 144 mmol/L (136-145) POTASSIUM 3.7 mmol/L (3.5-5.1) CHLORIDE 108 H mmol/L (98-107) CARBON DIOXIDE 26 mmol/L (21-32) CALCIUM 9.0 mg/dL (8.5-10.1) TOTAL PROTEIN 7.8 g/dL (6.4-8.2) ALBUMIN 3.9 g/dL (3.3-5.0) BILIRUBIN, TOTAL 0.3 mg/dL (0.0-1.0) ALKALINE PHOSPHATASE 106 U/L (46-116) AST (SGOT) 18 U/L (15-37) ALT (SGPT) 22 U/L (12-78) THYROID STIMULATING HORMONE 1.478 uIU/mL (0.30-3.74) . PROGRESS AND PROCEDURES Course of Care: IV N S Pt given vistaril 50 mg po twice and ativan 1 mg IV once due to agitation. Good response from medications. Pt cleared medically and in need of CD MHP due to homocidal and suicidal intent. Mental evaluation complete and pt bed found . Pt transferred to [facility]. Patient/family counseled. Disposition: Discharged. Condition: stable. CLINICAL IMPRESSION Suicidal ideation Homocidal. (Electronically signed by Rene Chi MD 02/13/2017 7:08)
--- NOTE | 2017-02-13 07:09 | ED MED RECONCILIATION SUMMARY ---
Patient: MAREN MARADIAGA Medication Reconciliation Report [facility] VisitID: [id number] [address] [place] [address] 62y, F Registration Date/Time: 02/11/2017 Weight: 90.7 kg Height/Length: 66 in. BMI: 32.3 ALLERGIES: Abilify The patient's Home Medications are listed below: THE FOLLOWING MEDICATIONS NEED TO BE RECONCILED: Atorvastatin Calcium Oral 20 mg, daily Effexor XR Oral 150 mg, bid morphine 60 mg, 2x a day OxyCODONE HCl Oral 20 mg, 2x a day TraZODone HCl Oral 400 mg, daily The source(s) of the original Home Medication information: patient The following Medications were given to the patient in the Emergency Department: Toradol [IVP] IVP 30 mg, administered: 02/11/2017 4:57:00 PM IV NS IV Fluids bolus 0, then 1000 mL/hr, administered: 02/11/2017 6:10:00 PM Vistaril [IM] IM 50 mg, administered: 02/11/2017 8:14:00 PM Vistaril [IM] IM 50 mg, administered: 02/12/2017 2:18:00 AM Ativan [IVP] IVP 1 mg, administered: 02/12/2017 5:56:00 AM The following Medications were prescribed to the patient: None.
--- NOTE | 2017-02-13 07:09 | ED MED RECONCILIATION SUMMARY ---
Patient: MAREN MARADIAGA Medication Reconciliation Report [facility] VisitID: [id number] [address] [place] [address] 62y, F Registration Date/Time: 02/11/2017 Weight: 90.7 kg Height/Length: 66 in. BMI: 32.3 ALLERGIES: Abilify The patient's Home Medications are listed below: THE FOLLOWING MEDICATIONS NEED TO BE RECONCILED: Atorvastatin Calcium Oral 20 mg, daily Effexor XR Oral 150 mg, bid morphine 60 mg, 2x a day OxyCODONE HCl Oral 20 mg, 2x a day TraZODone HCl Oral 400 mg, daily The source(s) of the original Home Medication information: patient The following Medications were given to the patient in the Emergency Department: Toradol [IVP] IVP 30 mg, administered: 02/11/2017 4:57:00 PM IV NS IV Fluids bolus 0, then 1000 mL/hr, administered: 02/11/2017 6:10:00 PM Vistaril [IM] IM 50 mg, administered: 02/11/2017 8:14:00 PM Vistaril [IM] IM 50 mg, administered: 02/12/2017 2:18:00 AM Ativan [IVP] IVP 1 mg, administered: 02/12/2017 5:56:00 AM The following Medications were prescribed to the patient: None.
--- NOTE | 2017-02-13 07:09 | ED MAR SUMMARY ---
..... Medication Administration Record [facility] [address] [place] [address] Patient: MAREN MARADIAGA Visit ID: [id number] 62y, F Weight: 90.7 kg Height/Length: 66 in BMI: 32.3 ALLERGIES: Abilify Given 16:57 02/11/2017 Anitha Waters R.N. Medication Administered: TORADOL [IVP], Dose: 30 mg IVP over 1 minute(s), Site: #1 right AC. Medication Ordered: Toradol IV 30 mg (NOW). Start 18:10 02/11/2017 Anitha Waters R.N., Stop 18:30 02/11/2017 Anitha Waters R.N. Medication Administered: IV NS (SALINE), Dose: IV Fluids over 1 hour(s), Rate: 1000 mL/hr, Site: #1 right AC. Medication Ordered: IV NS : initial bolus none -, then 1000 mL/hr for X1 (NOW). Given 20:14 02/11/2017 Anitha Waters R.N. Medication Administered: VISTARIL [IM] (HYDROXYZINE HCL), Dose: 50 mg IM. Medication Ordered: Vistaril IM 50 mg (NOW, Do not administer intravenously). Given 02:18 02/12/2017 Debra Franz R.N. Medication Administered: VISTARIL [IM] (HYDROXYZINE HCL), Dose: 50 mg IM. Medication Ordered: Vistaril IM 50 mg (NOW, Do not administer intravenously). Given 05:56 02/12/2017 Debra Franz R.N. Medication Administered: ATIVAN [IVP] (LORAZEPAM), Dose: 1 mg IVP over 2 minute(s), Site: #1 right AC. Medication Ordered: Ativan IV 1 mg (NOW).
--- NOTE | 2017-02-13 07:09 | ED DISCHARGE INSTRUCTIONS ---
Patient: MAREN MARADIAGA General Instructions [facility] VisitID: [id number] [place] [address] 62y, F Registration Date/Time: 02/11/2017 Suicidal ideation Homocidal. ADDITIONAL INFORMATION Depression Depression is one of the most common mental health problems today. It is not just a state of unhappiness or sadness. It is a true disease. The cause seems to be related to a decrease in chemicals that transmit signals in the brain. Having a family history of depression, alcoholism or suicide increases the risk. Chronic illness, chronic pain, migraine headaches and high emotional stress also increase the risk. Depression can cause many different symptoms, such as: -- Loss of appetite -- Over-eating -- Not being able to sleep -- Sleeping too much -- Tiredness not related to physical exertion -- Restlessness or irritability -- Slowness of movement or speech -- Feeling depressed or withdrawn -- Loss of interest in things you once enjoyed -- Difficulty in concentrating, poor memory, have trouble making decisions -- Thoughts of harming or killing oneself, or thoughts that life is not worth living -- Low self-esteem The best treatment for depression is a combination of medicine and psychotherapy. Antidepressant medicines can reduce suffering and can improve the ability to function during the depressed period. Therapy can offer emotional support and help you understand emotional factors that may be causing the depression. Home Care: 1) Be kind to yourself. Make it a point to do things that you enjoy (gardening, walking in nature, going to a movie, etc.). Reward yourself for small successes. 2) Take care of your physical body. Eat a balanced diet (low in saturated fat and high in fruits and vegetables). Establish an exercise plan at least 3 times a week for 30 minutes. Even mild-moderate exercise (like brisk walking) can make you feel better. 3) Avoid alcohol, which can make depression worse. Follow-Up with your doctor as advised. It is important to keep in contact with a health care provider until your symptoms begin to improve. Get Prompt Medical Attention if any of the following occur: -- Feeling extreme depression, fear, anxiety, or anger toward yourself or others -- Feeling out of control -- Feeling that you may try to harm yourself or another -- Hearing voices that others do not hear -- Seeing things that others do not see -- Cant sleep or eat for 3 days in a row You have been given the following additional information: Depression (Electronically signed by Rene Chi MD 02/13/2017 7:08)
--- NOTE | 2017-02-13 07:09 | ED MAR SUMMARY ---
..... Medication Administration Record [facility] [address] [place] [address] Patient: MAREN MARADIAGA Visit ID: [id number] 62y, F Weight: 90.7 kg Height/Length: 66 in BMI: 32.3 ALLERGIES: Abilify Given 16:57 02/11/2017 Anitha Waters R.N. Medication Administered: TORADOL [IVP], Dose: 30 mg IVP over 1 minute(s), Site: #1 right AC. Medication Ordered: Toradol IV 30 mg (NOW). Start 18:10 02/11/2017 Anitha Waters R.N., Stop 18:30 02/11/2017 Anitha Waters R.N. Medication Administered: IV NS (SALINE), Dose: IV Fluids over 1 hour(s), Rate: 1000 mL/hr, Site: #1 right AC. Medication Ordered: IV NS : initial bolus none -, then 1000 mL/hr for X1 (NOW). Given 20:14 02/11/2017 Anitha Waters R.N. Medication Administered: VISTARIL [IM] (HYDROXYZINE HCL), Dose: 50 mg IM. Medication Ordered: Vistaril IM 50 mg (NOW, Do not administer intravenously). Given 02:18 02/12/2017 Debra Franz R.N. Medication Administered: VISTARIL [IM] (HYDROXYZINE HCL), Dose: 50 mg IM. Medication Ordered: Vistaril IM 50 mg (NOW, Do not administer intravenously). Given 05:56 02/12/2017 Debra Franz R.N. Medication Administered: ATIVAN [IVP] (LORAZEPAM), Dose: 1 mg IVP over 2 minute(s), Site: #1 right AC. Medication Ordered: Ativan IV 1 mg (NOW).
== END 2017-02-12 07:30 ==
LOC: ED SRH 16:17
DX: R45.851 Suicidal ideations (principal); R45.850 Homicidal ideations; K21.9 Gastro-esophageal reflux disease without esophagitis; F31.9 Bipolar disorder, unspecified; Z79.899 Other long term (current) drug therapy; Z88.8 Allergy status to other drugs, medicaments and biological substances
CPT/HCPCS: 90004; 90100; 92760; 92761; 92762; 92763; 92764; 92765; 92766; 92767; 93140; 95059